=== PATIENT | male | born 1985 | race Caucasian/White ===

== ENCOUNTER 2017-08-18 14:49 | Emergency (ER) | payer OTHER, SELFPAY ==
[2017-08-18 15:05] VITALS: BP 114/77; RESP 18; TEMP 36.8; O2SAT 100; BMI 22.0
--- NOTE | 2017-08-18 15:32 | XR_ITS ---
XR chest 2V HISTORY: Pain ITS.REASON: abdominal pain ORDERING PHYSICIAN: Chantell Zuluaga MD PATIENT AGE: 31 years COMPARISON: None available FINDINGS: The cardiomediastinal silhouette and pulmonary vascularity are within normal limits. The lungs are clear without infiltrates, suspicious nodules, or pleural effusions. No acute bony abnormalities. IMPRESSION: Negative chest, no acute finding
[2017-08-18 15:36] LABS: Basophils # 0.1 K/mm3 (0-0.2); Basophils % 0.3 % (0.1-2.0); Eosinophils # 0.2 K/mm3 (0.0-0.4); Eosinophils % 1.4 % (0.1-12.0); Hematocrit 41.4 % (42.0-52.0); Lymphocytes # 3.5 K/mm3 (0.7-4.5); Lymphocytes % 21.5 K/mm3 (10-50); Mean Corpuscular HGB Conc 33.8 g/dL (31.8-35.4); Mean Corpuscular Hemoglobin 29.6 pg (27.0-31.2); Mean Corpuscular Volume 87.5 fl (80-94); Mean Platelet Volume 7.2 fl (7.4-10.4); Monocytes % 6.1 % (1.7-9.3); Neutrophils # 11.4 K/mm3 (1.8-7.8); Neutrophils % 70.7 % (37.0-80.0); Platelet Count 346 K/mm3 (142-424); Red Blood Count 4.73 M/mm3 (4.60-6.20); Red Cell Distribution Width 12.3 % (11.5-17.5); White Blood Count 16.1 K/mm3 (4.8-10.8)
[2017-08-18 15:42] LABS: MANUAL DIFFERENTIAL MANUAL DIFFERENTIAL (MANUAL DIFF)
[2017-08-18 15:49] LABS: Alanine Aminotransferase 66 U/L (12-78); Albumin Level 3.6 gm/dL (3.4-5.0); Albumin/Globulin Ratio 0.8 (1.1-1.8); Alkaline Phosphatase 69 U/L (46-116); Amylase 44 U/L (25-125); Anion Gap 7.6 mEq/L (5-15); Aspartate Amino Transferase 34 U/L (15-37); Bilirubin,Total 0.5 mg/dL (0.2-1.0); Blood Urea Nitrogen 14 mg/dL (7-18); Calcium 8.9 mg/dL (8.5-10.1); Carbon Dioxide 31 mmol/L (21.0-32.0); Chloride 99 mmol/L (98-107); Creatinine Clearance Estimated 113 mg/ml (0-300); Creatinine,Serum 0.88 mg/dL (0.70-1.30); Estimated Glomerular Filt Rate > 60 ml/min (>60); GFR (African American) > 60 ML/MIN (>60); Globulin 4.3 gm/dl (1.3-3.2); Glucose 99 mg/dL (74-106); Lipase 114 u/L (73-393); Potassium 3.6 mmoL/L (3.5-5.1); Sodium 134 mmol/L (136-145); Total Protein,Serum 7.9 gm/dL (6.4-8.2)
[2017-08-18 16:10] LABS: Ethyl Alcohol 0 mg/dL (0-99)
[2017-08-18 16:16] LABS: Microscopic, Urine URINE MICROSCOPIC (MICROSCOPIC)
[2017-08-18 16:28] LABS: Appearance,Urine CLEAR (Clear); Bilirubin,Urine Negative (Negative); Blood, Urine 2+ (Negative); Color,Urine YELLOW (Yellow); Glucose,Urine (UA) Negative (Negative); Ketones,Urine Negative (Negative); Leukocyte Esterase,Urine Negative (Negative); Nitrate,Urine Negative (Negative); Protein,Urine Negative (Negative)
--- NOTE | 2017-08-18 16:28 | [facility].EDGENADL ---
ED Disposition Clinical Impression: Enteritis Disposition: Home, Self-Care Condition on Discharge: Good Instructions: DI for Abdominal Pain-Adult Additional Instructions: CT scan showed enteritis. Recommend gatorade and close follow up with your family MD in one day. Rx Cipro Prescriptions: Ciprofloxacin HCl [Ciprofloxacin 500mg Tab] 500 mg PO BID #20 tab Referrals: Provider,Referral, [Primary Care Provider] - Time of Disposition: 18:33 - Critical Care Critical Care Time: No Attestation: On 08/18/17, the high probability of a clinically significant, sudden or life threatening deterioration of the following system(s) required my full and direct attention, intervention and personal management. The time I documented below is in addition to time spent performing reported procedures but includes the following listed in this critical care notation. Medical Decision Making Vital Signs: 08/18/17 15:05 Temperature 98.3 F Temperature Source Temporal Artery Scan Respiratory Rate 18 Blood Pressure [Right Arm] 114/77 Blood Pressure Mean [Right Arm] 89 Blood Pressure Source [Right Arm] Automatic Cuff Blood Pressure Position [Right Arm] Sitting 02 Sat by Pulse Oximetry 100 Oxygen Delivery Method Room Air - Lab Data Lab Results 08/18/17 15:15: WBC 16.1 H, RBC 4.73, Hgb 14.0 L, Hct 41.4 L, MCV 87.5, MCH 29.6, MCHC 33.8, RDW 12.3, Plt Count 346, MPV 7.2 L, Neut % (Auto) 70.7, Lymph % (Auto) 21.5, [place] % (Auto) 6.1, Eos % (Auto) 1.4, Baso % (Auto) 0.3, Neut # (Auto) 11.4 H, Lymph # (Auto) 3.5, [place] # (Auto) 1.0, Eos # (Auto) 0.2, Baso # (Auto) 0.1, Total Counted 100, Neutrophils % (Manual) 78 H, Lymphocytes % (Manual) 12, Monocytes % (Manual) 8, Basophils % (Manual) 2.0 H, Platelet Estimate Normal, RBC Morphology Normal 08/18/17 15:15: Sodium 134 L, Potassium 3.6, Chloride 99, Carbon Dioxide 31, Anion Gap 7.6, BUN 14, Creatinine 0.88, Estimated Creat Clear 113, Estimated GFR > 60, Est GFR ( Amer) > 60, Glucose 99, Calcium 8.9, Total Bilirubin 0.5, AST 34, ALT 66, Alkaline Phosphatase 69, Total Protein 7.9, Albumin 3.6, Globulin 4.3 H, Albumin/Globulin Ratio 0.8 L, Amylase 44, Lipase 114, Plasma/Serum Alcohol 0 08/18/17 15:25: Urine Opiates Screen Negative, Ur Barbituates Screen Negative, Ur Phencyclidine Scrn Negative, Ur Amphetamines Screen Positive H, U Methamphetamines Scrn Negative, U Benzodiazepines Scrn Negative, Urine Cocaine Screen Positive H, U Marijuana (THC) Screen Negative 08/18/17 16:04: Urine Color Yellow, Urine Appearance Clear, Urine pH 6.0, Ur Specific [place] 1.020, Urine Protein Negative, Urine Glucose (UA) Negative, Urine Ketones Negative, Urine Blood 2+, Urine Nitrate Negative, Urine Bilirubin Negative, Urine Urobilinogen 1.0, Ur Leukocyte Esterase Negative, Urine RBC 10-20, Urine WBC Occasional, Ur Squamous Epith Cells Occasional, Urine Bacteria 2+, Urine Mucus 1+ 08/18/17 16:15: Total Creatine Kinase 252, CK-MB (CK-2) 3.0, CK-MB (CK-2) Rel Index 1.2, Troponin I < 0.02 08/18/17 16:15: Lactic Acid 0.8 Result diagrams: 08/18/17 15:15 08/18/17 15:15 Orders (Tests/Meds): ED MEDICATIONS Generic Name Dose Route Start Last Admin Trade Name Freq PRN Reason Stop Dose Admin Sodium Chloride 10 ml 08/18/17 17:10 08/18/17 17:12 Rad-Saline Flush 10ml Syringe IV 09/17/17 17:09 10 ml NEEDED PRN Administration Maintain IV Site Discontinued Medications Generic Name Dose Route Start Last Admin Trade Name Freq PRN Reason Stop Dose Admin Iopamidol 75 ml 08/18/17 17:10 08/18/17 17:13 [id number]; 75ml Vial IV 08/18/17 17:11 75 ml ONCE ONE Administration ORDERS Category Date Time Status Blood Culture Stat Micro 08/18/17 16:15 Received Urine Culture Stat Micro 08/18/17 16:04 Received - Radiology Data #1 Image(s): Chest Image Reviewed: Yes I reviewed the patient's radiology results, Yes I have reviewed radiologist's interpretation Preliminary Findi
--- NOTE | 2017-08-18 16:35 | ED_ITS ---
ED Disposition Clinical Impression: Enteritis Disposition: Home, Self-Care Condition on Discharge: Good Instructions: DI for Abdominal Pain-Adult Additional Instructions: CT scan showed enteritis. Recommend gatorade and close follow up with your family MD in one day. Rx Cipro Prescriptions: Ciprofloxacin HCl [Ciprofloxacin 500mg Tab] 500 mg PO BID #20 tab Referrals: Provider,Referral, [Primary Care Provider] - Time of Disposition: 18:33 - Critical Care Critical Care Time: No Attestation: On 08/18/17, the high probability of a clinically significant, sudden or life threatening deterioration of the following system(s) required my full and direct attention, intervention and personal management. The time I documented below is in addition to time spent performing reported procedures but includes the following listed in this critical care notation. Medical Decision Making Vital Signs: 08/18/17 15:05 Temperature 98.3 F Temperature Source Temporal Artery Scan Respiratory Rate 18 Blood Pressure [Right Arm] 114/77 Blood Pressure Mean [Right Arm] 89 Blood Pressure Source [Right Arm] Automatic Cuff Blood Pressure Position [Right Arm] Sitting 02 Sat by Pulse Oximetry 100 Oxygen Delivery Method Room Air - Lab Data Lab Results 08/18/17 15:15: WBC 16.1 H, RBC 4.73, Hgb 14.0 L, Hct 41.4 L, MCV 87.5, MCH 29.6 , MCHC 33.8, RDW 12.3, Plt Count 346, MPV 7.2 L, Neut % (Auto) 70.7, Lymph % ( Auto) 21.5, [place] % (Auto) 6.1, Eos % (Auto) 1.4, Baso % (Auto) 0.3, Neut # (Auto ) 11.4 H, Lymph # (Auto) 3.5, [place] # (Auto) 1.0, Eos # (Auto) 0.2, Baso # (Auto ) 0.1, Total Counted 100, Neutrophils % (Manual) 78 H, Lymphocytes % (Manual) 12 , Monocytes % (Manual) 8, Basophils % (Manual) 2.0 H, Platelet Estimate Normal, RBC Morphology Normal 08/18/17 15:15: Sodium 134 L, Potassium 3.6, Chloride 99, Carbon Dioxide 31, Anion Gap 7.6, BUN 14, Creatinine 0.88, Estimated Creat Clear 113, Estimated GFR > 60, Est GFR ( Amer) > 60, Glucose 99, Calcium 8.9, Total Bilirubin 0.5, AST 34, ALT 66, Alkaline Phosphatase 69, Total Protein 7.9, Albumin 3.6, Globulin 4.3 H, Albumin/Globulin Ratio 0.8 L, Amylase 44, Lipase 114, Plasma/ Serum Alcohol 0 08/18/17 15:25: Urine Opiates Screen Negative, Ur Barbituates Screen Negative, Ur Phencyclidine Scrn Negative, Ur Amphetamines Screen Positive H, U Methamphetamines Scrn Negative, U Benzodiazepines Scrn Negative, Urine Cocaine Screen Positive H, U Marijuana (THC) Screen Negative 08/18/17 16:04: Urine Color Yellow, Urine Appearance Clear, Urine pH 6.0, Ur Specific [place] 1.020, Urine Protein Negative, Urine Glucose (UA) Negative, Urine Ketones Negative, Urine Blood 2+, Urine Nitrate Negative, Urine Bilirubin Negative, Urine Urobilinogen 1.0, Ur Leukocyte Esterase Negative, Urine RBC 10- 20, Urine WBC Occasional, Ur Squamous Epith Cells Occasional, Urine Bacteria 2+ , Urine Mucus 1+ 08/18/17 16:15: Total Creatine Kinase 252, CK-MB (CK-2) 3.0, CK-MB (CK-2) Rel Index 1.2, Troponin I < 0.02 08/18/17 16:15: Lactic Acid 0.8 Result diagrams: 08/18/17 15:15 08/18/17 15:15 Orders (Tests/Meds): ED MEDICATIONS Generic Name Dose Route Start Last Admin Trade Name Oscarq PRN Reason Stop Dose Admin Sodium Chloride 10 ml 08/18/17 17:10 08/18/17 17:12 Rad-Saline Flush 10ml Syringe IV 09/17/17 17:09 10 ml NEEDED PRN Administration Maintain IV Site Discontinued Medications Generic Name Dos
--- NOTE | 2017-08-18 16:36 | CT_ITS ---
CT abdomen pelvis wo/w con CLINICAL INDICATION: Left upper quadrant pain, history of drug use ITS.REASON: drug user with LUQ pain check spleen ORDERING PHYSICIAN: Chantell Zuluaga MD PATIENT AGE: 31 years COMPARISON: None TECHNIQUE: Axial images obtained with sagittal and coronal reformats. PROCEDURE: Oral Contrast: None IV Contrast: 75 mL is [id number]. FINDINGS: Lung bases are clear. Focal decreased attenuation involves the lateral aspect of the medial segment left hepatic lobe along the fissure for the ligamentum teres and may be due to focal fatty infiltration. Prior cholecystectomy without ductal dilatation. Spleen size is upper normal at 12 cm. No splenic lesions or subcapsular hematoma. The adrenal glands and pancreas are unremarkable. No obstructing renal calculi or hydronephrosis. Nonobstructing 4 mm stone is present in the lower pole the right kidney. There is a small right renal cortical cyst at 8 mm. No evidence of appendicitis, intestinal obstruction, or free air. There are nondistended fluid-filled loops of small bowel present nonspecific but could be seen with enteritis. No pelvic mass or abnormal fluid collection or focal inflammatory change. IMPRESSION: 1. Unremarkable appearing spleen. 2. Nonobstructing right nephrolithiasis. 3. Scattered fluid-filled loops of small bowel nondistended nonspecific and may be seen with enteritis
[2017-08-18 16:37] LABS: Amphetamine/Metha Screen,Urine Positive ng/mL (<1000); Barbiturates Screen,Urine Negative ng/mL (<200); Benzodiazepines Screen,Urine Negative ng/mL (200); Cannabinoid Screen,Urine Negative ng/mL (<50); Cocaine Screen,Urine Positive ng/g (<300); Methadone Screen,Urine Negative ng/mL (<300); Opiate Screen,Urine Negative ng/mL (<300); Phencyclidine Screen,Urine Negative ng/mL (<25)
[2017-08-18 16:47] LABS: Lactic Acid 0.8 mmol/L (0.4-2.0)
[2017-08-18 16:59] LABS: CKMB Relative Index 1.2 U/L (0-4.0); Creatine Kinase 252 U/L (39-308); Troponin I < 0.02 ng/ml (0.00-0.06)
[2017-08-18 17:10] LABS: Lymphocytes % 12 % (10-50); Monocytes % 8 % (2-9); Neutrophils % 78 % (42-76); Platelet Estimate Normal; Total Cells Counted 100
[2017-08-18 17:11] LABS: RBC Morphology Normal
[2017-08-18 17:18] LABS: Squamous Epithelial Cell,Urine Occasional #/hpf (0-5); WBC,Urine Occasional #/hpf (0-3)
[2017-08-18 17:19] LABS: Bacteria,Urine 2+ /lpf; Mucus,Urine 1+ /lpf
[2017-08-18 19:02] VITALS: BP 115/70; PULSE 98; RESP 24; TEMP 36.9; O2SAT 96
== END 2017-08-18 19:04 | disposition home or self-care (01) ==
PROVIDERS: Emergency Provider Emergency Medicine
DX: K52.9 Noninfective gastroenteritis and colitis, unspecified (principal); F14.10 Cocaine abuse, uncomplicated; F15.10 Other stimulant abuse, uncomplicated
CPT/HCPCS: 36415; 71046; 74170; 74178; 80053; 80305; 81001; 82150; 82550; 82553; 83605; 83690; 84484; 85007; 85025; 87040; 87086; 93005; 93041; 99284; Q9967